=== PATIENT | female | born 1995 | race Caucasian/White ===

== ENCOUNTER 2017-10-06 05:15 | Inpatient (IN) | payer BC ==
[~2017-10-06] VITALS: Ht 172.7 cm; Wt 104.8 kg
[2017-10-06] MEDS ORDERED: LR 1,000 ML IV SCH (05:49)
[2017-10-06] MEDS ORDERED: OXYTOCIN/NORMAL SALINE 1,000 ML IV SCH ×2 (05:49→16:04)
[2017-10-06] MEDS ORDERED: TERBUTALINE SULFATE 1 MG/ML VIAL SUBCUT ONE (06:00)
[2017-10-06] MEDS ORDERED: NALBUPHINE HCL 10 MG/ML AMP IVP PRN (06:00)
[2017-10-06 06:43] VITALS: BP_SYST 134
[2017-10-06 07:02] LABS: BASOPHILS % (AUTO) 0.3 % (0.0-2.0); EOSINOPHILS # (AUTO) 0.1 K/uL (0.0-0.4); EOSINOPHILS % (AUTO) 0.8 % (0.0-4.0); HEMATOCRIT 37.4 % (36-48); HEMOGLOBIN 12.7 g/dL (12.0-16.0); LYMPHOCYTES # (AUTO) 2.5 K/uL (1.0-5.5); LYMPHOCYTES % (AUTO) 19.4 % (20.5-51.5); MEAN CORPUSCULAR HEMOGLOBIN 30 pg (27-31); MEAN CORPUSCULAR HGB CONC 34 % (32-36); MEAN CORPUSCULAR VOLUME 87 fL (79.0-98.0); MONOCYTES # (AUTO) 0.8 K/uL (0.0-1.0); MONOCYTES % (AUTO) 6.4 % (1.7-9.3); NEUTROPHILS # (AUTO) 9.6 K/uL (1.8-7.7); PLATELET COUNT (AUTO) 213 K/uL (130-430); RED CELL DISTRIBUTION WIDTH 13.8 % (9.0-15.0)
[2017-10-06 10:38] LABS: NEUTROPHILS % (AUTO) 73.1 % (40.0-70.0)
[2017-10-06] MEDS ORDERED: FENT2mCg/mL-ROPIVA0.2%/NS EPID 150 ML EP ONE (10:54)
[2017-10-06] MEDS ORDERED: fentaNYL CITRATE/PF 100 MCG/2 ML AMP ONE (10:54)
[2017-10-06] MEDS ORDERED: LR 500 ML IV ONE ×2 (11:31)
[2017-10-06] MEDS ORDERED: FENT2mCg/mL-ROPIVA0.2%/NS EPID 150 ML EP SCH ×2 (11:45)
[2017-10-06] MEDS ORDERED: ePHEDrine sulfate 50 MG/ML VIAL IVP PRN ×2 (11:45)
[2017-10-06] MEDS ORDERED: fentaNYL CITRATE/PF 100 MCG/2 ML AMP EP ONE ×2 (11:45)
[2017-10-06] MEDS ORDERED: OXYTOCIN/NORMAL SALINE 1,000 ML IV ONE (16:04)
[2017-10-06] MEDS ORDERED: SENNOSIDES/DOCUSATE SODIUM 1 TAB TABLET(SENOKOT-S) PO PRN (16:15)
[2017-10-06] MEDS ORDERED: OXYCODONE/ACETAMINOPHEN 5-325 TABLET PO PRN ×2 (16:15)
[2017-10-06] MEDS ORDERED: DERMOPLAST SPRAY TP PRN (16:15)
[2017-10-06] MEDS ORDERED: DOCUSATE SODIUM 100 MG CAPSULE PO PRN (16:15)
[2017-10-06] MEDS ORDERED: GLYCERIN/WITCH HAZEL (TUCKS PADS) TP PRN (16:15)
[2017-10-06] MEDS ORDERED: HYDROCORTISONE 0.5%, 28.35 GM TOPICAL CREAM TP PRN (16:15)
[2017-10-06] MEDS ORDERED: HYDROcodone/ACETAMIN 5-325 MG TAB (NORCO/ VICODIN) PO PRN (16:15)
[2017-10-06] MEDS ORDERED: METHYLERGONOVINE MALEATE 0.2 MG TABLET PO PRN (16:15)
[2017-10-06] MEDS ORDERED: RHO(D) IMMUNE GLOBULIN/MALTOSE 1500 UNITS/1.3 ML (WINHRO) IM PRN (16:15)
[2017-10-06] MEDS ORDERED: MEASLES,MUMPS&RUBELLA VACC/PF 12500 UNIT/0.5 ML VIAL SUBQ PRN (16:15)
[2017-10-06] MEDS ORDERED: ANUSOL 1 EA SUPP.RECT (PREPARATION H) RC PRN (16:15)
[2017-10-06] MEDS ORDERED: LANOLIN 7 GM OINT. TP PRN (16:15)
[2017-10-06] MEDS: IBUPROFEN 600 MG TABLET PO SCH ×2 (19:15→23:49)
[2017-10-06] MEDS ORDERED: ROPIVACAINE 40 MG/20 ML AMP EP ONE (19:52)
[2017-10-06] MEDS ORDERED: MINERAL OIL 30 ML UDC PO ONE (19:52)
[2017-10-06] MEDS ORDERED: TEMAZEPAM 15 MG CAPSULE PO PRN (21:00)
[2017-10-07] MEDS: IBUPROFEN 600 MG TABLET PO SCH ×3 (06:01→17:52)
[2017-10-07 06:42] LABS: BASOPHILS % (AUTO) 0.3 % (0.0-2.0); EOSINOPHILS # (AUTO) 0.1 K/uL (0.0-0.4); EOSINOPHILS % (AUTO) 0.5 % (0.0-4.0); HEMATOCRIT 30.4 % (36-48); HEMOGLOBIN 10.4 g/dL (12.0-16.0); LYMPHOCYTES # (AUTO) 2.7 K/uL (1.0-5.5); LYMPHOCYTES % (AUTO) 20.2 % (20.5-51.5); MEAN CORPUSCULAR HEMOGLOBIN 30 pg (27-31); MEAN CORPUSCULAR HGB CONC 34 % (32-36); MEAN CORPUSCULAR VOLUME 86 fL (79.0-98.0); MONOCYTES # (AUTO) 1.1 K/uL (0.0-1.0); MONOCYTES % (AUTO) 7.8 % (1.7-9.3); NEUTROPHILS # (AUTO) 9.7 K/uL (1.8-7.7); NEUTROPHILS % (AUTO) 71.2 % (40.0-70.0); PLATELET COUNT (AUTO) 166 K/uL (130-430); RED BLOOD CELL COUNT(AUTO) 3.54 MIL/uL (4.2-6.2); RED CELL DISTRIBUTION WIDTH 14.3 % (9.0-15.0); WHITE BLOOD COUNT (AUTO) 13.6 K/uL (4.8-10.8)
== END 2017-10-07 20:05 | disposition home or self-care (01) | DRG 775 ==
LOC: SPU 05:15
PROVIDERS: ADMIT Specialist; ATTEND Specialist
PROC: 10E0XZZ Delivery of Products of Conception, External Approach (ICD-10-PCS; principal; 2017-10-06)
PROC: 0W8NXZZ Division of Female Perineum, External Approach (ICD-10-PCS; 2017-10-06)
PROC: 3E0R3BZ Introduction of Anesthetic Agent into Spinal Canal, Percutaneous Approach (ICD-10-PCS; 2017-10-06)
PROC: 00HU33Z Insertion of Infusion Device into Spinal Canal, Percutaneous Approach (ICD-10-PCS; 2017-10-06)
DX: O99.214 Obesity complicating childbirth (principal); E66.01 Morbid (severe) obesity due to excess calories; Z68.35 Body mass index [BMI] 35.0-35.9, adult; Z3A.39 39 weeks gestation of pregnancy; Z37.0 Single live birth
CPT/HCPCS: 36415; 81002-TC; 85025; 86592; 86886; 86900; 86901; J2590; J2795; J3010; J7120

== ENCOUNTER 2019-01-19 11:52 | Observation (INO) | payer BC ==
[~2019-01-19] VITALS: Ht 172.7 cm; Wt 95.3 kg
[2019-01-19] MEDS ORDERED: KETOROLAC TROMETHAMINE 30 MG VIAL IVP ONE ×2 (12:10→16:15)
[2019-01-19] MEDS ORDERED: LR 1,000 ML IV.SOLN IV ONE (12:10)
[2019-01-19] MEDS ORDERED: CEFAZOLIN 2 GM IVPB PREMIX 50 ML IV ONE (12:10)
[2019-01-19] MEDS ORDERED: SUGAMMADEX SODIUM 200 MG/2 ML VIAL IV ONE (12:10)
[2019-01-19] MEDS ORDERED: fentaNYL CITRATE/PF 100 MCG/2 ML AMP IVP ONE (12:10)
[2019-01-19] MEDS ORDERED: NS 1000 ML IV.SOLN IV ONE (12:10)
[2019-01-19] MEDS ORDERED: fentaNYL CITRATE 250 MCG/5 ML AMP IV ONE (12:10)
[2019-01-19] MEDS ORDERED: MIDAZOLAM HCL 5 MG/5 ML VIAL IVP ONE (12:10)
[2019-01-19] MEDS ORDERED: ONDANSETRON HCL 4 MG/2 ML VIAL IVP ONE (12:10)
[2019-01-19] MEDS ORDERED: PROPOFOL 200MG/ 20ML VIAL (DIPRIVAN) IV ONE (12:10)
[2019-01-19] MEDS ORDERED: SEVOFLURANE 15 MIN GAS INH ONE (12:10)
[2019-01-19] MEDS ORDERED: ROCURONIUM BROMIDE 10 MG/ML (ZEMURON) IV ONE (12:10)
[2019-01-19 12:16] VITALS: BP_SYST 106
[2019-01-19 12:56] LABS: CALCIUM 8.8 mg/dL (8.4-11.0); CREATININE 0.72 mg/dL (0.55-1.30); POTASSIUM 3.9 mmol/L (3.5-5.1)
[2019-01-19 13:01] LABS: ALBUMIN 3.7 g/dL (3.4-4.8); TOTAL BILIRUBIN 0.3 mg/dL (0.0-1.0)
[2019-01-19 13:13] LABS: RED BLOOD CELL COUNT(AUTO) 4.28 MIL/uL (4.2-6.2); WHITE BLOOD COUNT (AUTO) 10.7 K/uL (4.8-10.8)
[2019-01-19 13:14] LABS: HEMATOCRIT 36.7 % (36-48); HEMOGLOBIN 12.4 g/dL (12.0-16.0); MEAN CORPUSCULAR HEMOGLOBIN 29 pg (27-31); MEAN CORPUSCULAR HGB CONC 34 % (32-36); MEAN CORPUSCULAR VOLUME 86 fL (79.0-98.0); PLATELET COUNT (AUTO) 379 K/uL (130-430); RED CELL DISTRIBUTION WIDTH 13.4 % (9.0-15.0)
[2019-01-19 13:15] LABS: BASOPHILS # (AUTO) 0.1 K/uL (0.0-0.2); BASOPHILS % (AUTO) 0.6 % (0.0-2.0); EOSINOPHILS # (AUTO) 0.1 K/uL (0.0-0.4); EOSINOPHILS % (AUTO) 1.4 % (0.0-4.0); LYMPHOCYTES % (AUTO) 28.5 % (20.5-51.5); MONOCYTES # (AUTO) 0.6 K/uL (0.0-1.0); MONOCYTES % (AUTO) 5.8 % (1.7-9.3); NEUTROPHILS # (AUTO) 6.8 K/uL (1.8-7.7); NEUTROPHILS % (AUTO) 63.7 % (40.0-70.0)
[2019-01-19 13:54] LABS: BILIRUBIN,URINE NEGATIVE (NEGATIVE); BLOOD, URINE NEGATIVE (NEGATIVE); CLARITY/URINE CLEAR (CLEAR); COLOR,URINE YELLOW (YELLOW); GLUCOSE,URINE NEGATIVE (NEGATIVE); KETONES,URINE NEGATIVE (NEGATIVE); LEUKOCYTE ESTERASE ,URINE NEGATIVE (NEGATIVE); NITRITE, URINE NEGATIVE (NEGATIVE); PH,URINE 5.5 (5.0-8.0); PROTEIN URINE TRACE (NEGATIVE); UROBILINOGEN,URINE 0.2 (0.2-1.0)
[2019-01-19 14:14] LABS: BACTERIA,URINE FEW /HPF (None Seen); RBC,URINE 0-3 /HPF (0-3); WBC,URINE 0-3 /HPF (0-3)
[2019-01-19 14:15] LABS: COARSE GRANULAR CASTS,URINE 0-10 /LPF (None Seen); MUCUS,URINE 2+ /LPF (None Seen); YEAST,URINE None Seen /HPF (None Seen)
[2019-01-19] MEDS ORDERED: NS 500 ML IV ONE (16:15)
[2019-01-19 17:47] VITALS: BP_SYST 105
[2019-01-19] MEDS ORDERED: HYDROmorphone 2 MG/ML VIAL IV PRN (18:30)
[2019-01-19] MEDS ORDERED: HYDROmorphone 2 MG/ML VIAL IM PRN (18:30)
[2019-01-19] MEDS: D5/0.45 NS 1,000 ML IV SCH (18:36)
[2019-01-19 19:10] VITALS: BP_SYST 115
[2019-01-19] MEDS: HYDROmorphone 2 MG/ML VIAL IVP PRN (22:35)
[2019-01-20 00:23] VITALS: BP_SYST 125
[2019-01-20] MEDS: HYDROmorphone 2 MG/ML VIAL IVP PRN ×3 (03:02→18:40)
[2019-01-20] MEDS: D5/0.45 NS 1,000 ML IV SCH ×3 (03:04→18:40)
[2019-01-20 07:16] LABS: HEMOGLOBIN 9.2 g/dL (12.0-16.0); MEAN CORPUSCULAR VOLUME 86 fL (79.0-98.0); RED BLOOD CELL COUNT(AUTO) 3.13 MIL/uL (4.2-6.2); WHITE BLOOD COUNT (AUTO) 10.7 K/uL (4.8-10.8)
[2019-01-20 07:17] LABS: BASOPHILS % (AUTO) 0.1 % (0.0-2.0); EOSINOPHILS % (AUTO) 0.1 % (0.0-4.0); LYMPHOCYTES # (AUTO) 1.1 K/uL (1.0-5.5); LYMPHOCYTES % (AUTO) 10.3 % (20.5-51.5); MEAN CORPUSCULAR HEMOGLOBIN 29 pg (27-31); MEAN CORPUSCULAR HGB CONC 34 % (32-36); MONOCYTES # (AUTO) 0.9 K/uL (0.0-1.0); NEUTROPHILS # (AUTO) 8.7 K/uL (1.8-7.7); NEUTROPHILS % (AUTO) 81.5 % (40.0-70.0); PLATELET COUNT (AUTO) 262 K/uL (130-430); RED CELL DISTRIBUTION WIDTH 13.3 % (9.0-15.0)
[2019-01-20 08:22] VITALS: BP_SYST 118
[2019-01-20] MEDS ORDERED: ONDANSETRON HCL 4 MG/2 ML VIAL IVP PRN ×2 (12:00→13:45)
[2019-01-20 12:15] VITALS: BP_SYST 123
[2019-01-20] MEDS ORDERED: LR 1,000 ML IV SCH (12:59)
[2019-01-20] MEDS ORDERED: MORPHINE 4 MG/ML INJ. SYRINGE IVP PRN ×3 (13:00)
[2019-01-20] MEDS ORDERED: METOCLOPRAMIDE HCL 10 MG/2 ML VIAL IVP PRN (13:00)
[2019-01-20] MEDS ORDERED: MORPHINE 4 MG/ML INJ. SYRINGE ONE (14:41)
[2019-01-20 15:00] VITALS: BP_SYST 118
[2019-01-20] MEDS: HYDROcodone/ACETAMIN 5-325 MG TAB (NORCO/ VICODIN) PO PRN (15:40)
[2019-01-20 17:53] VITALS: BP_SYST 128
[2019-01-20 19:21] VITALS: BP_SYST 126
[2019-01-21] MEDS: HYDROmorphone 2 MG/ML VIAL IVP PRN (00:34)
[2019-01-21 02:07] VITALS: BP_SYST 115
[2019-01-21] MEDS: D5/0.45 NS 1,000 ML IV SCH (03:36)
[2019-01-21] MEDS: HYDROcodone/ACETAMIN 5-325 MG TAB (NORCO/ VICODIN) PO PRN ×3 (04:06→12:29)
[2019-01-21] MEDS ORDERED: HYDR-4272 PO (04:42)
[2019-01-21 08:45] VITALS: BP_SYST 133
[2019-01-21 11:24] VITALS: BP_SYST 126
[2019-01-21 14:49] VITALS: BP_SYST 112
== END 2019-01-21 15:26 | disposition home or self-care (01) ==
LOC: SED 11:52 → SMU 17:05
PROVIDERS: ADMIT Specialist; ATTEND Specialist
DX: O03.9 Complete or unspecified spontaneous abortion without complication (principal); N80.9 Endometriosis, unspecified; N83.201 Unspecified ovarian cyst, right side; K66.1 Hemoperitoneum; O00.102 Left tubal pregnancy without intrauterine pregnancy; N83.00 Follicular cyst of ovary, unspecified side
CPT/HCPCS: 36415 ×2; 59151; 74021; 76801; 76817; 80053; 81000; 83690; 84702 ×2; 85025 ×2; 86900; 86901; 87081; 88305; 96361 ×3; 96374; 96375 ×2; 96376 ×3; 99291; C1727; C1782; C9399; G0378 ×3; J0690; J1170 ×3; J1885; J2250; J2270; J2405 ×2; J2704; J3010 ×2; J7030; J7120